=== PATIENT | female | born 1950 | race Caucasian/White ===

== ENCOUNTER 2017-10-31 06:42 | Inpatient (IN) ==
[2017-10-27 16:38] LABS: Appearance,Urine CLEAR; Bilirubin,Urine NEG (NEG); Color,Urine YELLOW; Glucose,Urine (UA) NEGATIVE (NEG); Leukocyte Esterase,Urine NEG /uL (NEG); Protein,Urine NEG (NEG); Specific Gravity,Urine 1.018 (1.000-1.035); Urine Blood NEG mg/dL (<0.03); Urobilinogen,Urine NEG (NEG)
[2017-10-27 18:19] LABS: Blood Urea Nitrogen 29 mg/dl (8-23)
[2017-10-27 18:22] LABS: Basophils # (Auto) 0.1 K/mcL (0.0-0.3); Basophils % (Auto) 0.6 % (0.0-2.0); Eosinophils # (Auto) 0.3 K/mcL (0.0-0.7); Eosinophils % (Auto) 1.7 % (0.0-7.0); Granulocytes % (Auto) 73.9 % (38.0-78.0); Lymphocytes # (Auto) 3.2 K/mcL (1.5-4.8); Lymphocytes % (Auto) 17.8 % (15.5-49.0); Mean Cell Volume 76.1 fL (80.0-100.0); Mean Corpuscular HGB Conc 31.8 g/dL (31.0-36.0); Mean Corpuscular Hemoglobin 24.2 pg (26.0-34.0); Monocytes # (Auto) 1.1 K/mcL (0.1-0.9); Platelet Count 266 K/mcL (140-440); RBC 4.69 M/mcL (4.00-5.20); Red Cell Distribution Width 21.9 % (11.5-14.5)
[2017-10-31] MEDS ORDERED: oxyCODONE 10 MG TAB.ER.12H PO SCH (07:00)
[2017-10-31] MEDS ORDERED: CLINDAMYCIN 600 MG in DEXTROSE 5% IN WATER 50 ML IV SCH (07:00)
[2017-10-31] MEDS ORDERED: PREGABALIN 75 MG CAPSULE PO SCH (07:00)
[2017-10-31] MEDS ORDERED: CELECOXIB 200 MG CAPSULE PO SCH (07:00)
[2017-10-31] MEDS ORDERED: ACETAMINOPHEN 500 MG TABLET PO SCH (07:00)
[2017-10-31] MEDS ORDERED: IPRATROPIUM/ALBUTEROL 3 ML AMPUL.NEB NEB ONE (08:31)
[2017-10-31] MEDS ORDERED: LEVALBUTEROL 1.25 MG/3 ML AMPUL.NEB NEB ONE (08:45)
[2017-10-31] MEDS ORDERED: MIDAZOLAM 5 MG/5 ML VIAL IV ONE (09:10)
[2017-10-31] MEDS ORDERED: PROPOFOL 200 MG/20 ML VIAL IV ONE (09:10)
[2017-10-31] MEDS ORDERED: ONDANSETRON 4 MG/2 ML VIAL IV ONE (09:10)
[2017-10-31] MEDS ORDERED: DEXAMETHASONE 10 MG/ML VIAL IV ONE (09:10)
[2017-10-31] MEDS ORDERED: SUCCINYLCHOLINE 20 MG/ML ML IV ONE (09:10)
[2017-10-31] MEDS ORDERED: TRANEXAMIC ACID 1,000 MG/10 ML VIAL IV ONE ×2 (09:10→10:24)
[2017-10-31] MEDS ORDERED: KETAMINE 100 MG/ML ML IV ONE (09:10)
[2017-10-31] MEDS ORDERED: fentaNYL 250 MCG/5 ML VIAL IV ONE (09:10)
[2017-10-31] MEDS ORDERED: LIDOCAINE HCL/PF 100 MG/5 ML SYRINGE IV ONE (09:10)
[2017-10-31] MEDS ORDERED: GENTAMICIN SULFATE 800 MG/20 ML VIAL IR ONE (09:52)
[2017-10-31] MEDS ORDERED: HYDROmorphone 2 MG/ML VIAL IV PRN ×2 (09:57→10:24)
[2017-10-31] MEDS ORDERED: diphenhydrAMINE 50 MG/ML VIAL IV PRN (09:57)
[2017-10-31] MEDS ORDERED: KETOROLAC 15 MG/ML VIAL IV PRN ×2 (09:57→10:24)
[2017-10-31] MEDS ORDERED: ePHEDrine 50 MG/ML AMPUL IV PRN (09:57)
[2017-10-31] MEDS ORDERED: MEPERIDINE 25 MG/ML SYRINGE IV PRN (09:57)
[2017-10-31] MEDS ORDERED: PROMETHAZINE 25 MG/ML VIAL IV PRN (09:57)
[2017-10-31] MEDS ORDERED: NALOXONE HCL 0.4 MG/ML VIAL IV PRN (09:57)
[2017-10-31] MEDS ORDERED: IPRATROPIUM/ALBUTEROL 3 ML AMPUL.NEB NEB PRN (09:57)
[2017-10-31] MEDS ORDERED: FLUMAZENIL 0.1 MG/ML ML IV PRN (09:57)
[2017-10-31] MEDS ORDERED: METHOCARBAMOL 1,000 MG/10 ML VIAL IV PRN (09:57)
[2017-10-31] MEDS ORDERED: ONDANSETRON 4 MG/2 ML VIAL IV PRN ×2 (09:57→10:24)
[2017-10-31] MEDS ORDERED: ATROPINE SULFATE 0.4 MG/ML VIAL IV PRN (09:57)
[2017-10-31] MEDS ORDERED: METOPROLOL TARTRATE 5 MG/5 ML VIAL IV PRN (09:57)
[2017-10-31] MEDS ORDERED: LACTATED RINGERS 1,000 ML IV SCH (10:00)
[2017-10-31] MEDS ORDERED: BUPIVACAINE W/EPI 0.5% 50 ML VIAL IJ ONE (10:17)
[2017-10-31] MEDS ORDERED: MAGNESIUM HYDROXIDE 30 ML ORAL.SUSP PO PRN (10:24)
[2017-10-31] MEDS ORDERED: BISACODYL 10 MG SUPP.RECT PR PRN (10:24)
[2017-10-31] MEDS ORDERED: TEMAZEPAM 15 MG CAPSULE PO PRN (10:24)
[2017-10-31] MEDS ORDERED: POLYETHYLENE GLYCOL 3350 17 GM PACKET PO PRN (10:24)
[2017-10-31] MEDS ORDERED: BENZOCAINE/MENTHOL 1 LOZENGE PO PRN (10:24)
[2017-10-31] MEDS ORDERED: FLEETS ADULT ENEMA PR PRN (10:24)
[2017-10-31] MEDS ORDERED: ACETAMINOPHEN 325 MG TABLET PO PRN (10:24)
--- NOTE | 2017-10-31 10:24 | Brief Operative Note ---
Date of procedure: 10/31/17 Pre-op diagnosis: right shoulder rotator cuff arthropathy Post-op diagnosis: same Procedure: right shoulder reverse tsa and bicep tenodesis Grafts/Implants: Yes Anesthesia: GETA Complications Description: 10/31/17 10:23 none Surgeon: Jorge A Chavez Pulp Machine Operator: Jovanny Thompson Estimated blood loss (cc): 100 Specimens Removed/Pathology: none sent Condition: stable Disposition: PACU
[2017-10-31] MEDS ORDERED: LORazepam 0.5 MG TABLET PO PRN (10:26)
[2017-10-31] MEDS ORDERED: IPRATROPIUM BROMIDE 1 PUFF INHALER INH SCH (10:30)
[2017-10-31] MEDS: fentaNYL 100 MCG/2 ML VIAL IV PRN ×3 (11:13→11:24)
--- NOTE | 2017-10-31 11:13 | XRay Report ---
CLINICAL INFORMATION: Postsurgical follow-up TECHNIQUE: AP and Y view COMPARISON: None. FINDINGS: Status post reverse shoulder arthroplasty. Alignment is anatomic. Scapula and distal clavicle are negative. IMPRESSION: Status post reverse right shoulder arthroplasty Interpreted and Authenticated by: Miller Peacock 10/31/17
[2017-10-31] MEDS: 0.45 % SODIUM CHLORIDE 1,000 ML IV SCH ×3 (11:45→22:28)
--- NOTE | 2017-10-31 11:45 | Operative Note ---
DATE OF OPERATION: 10/31/2017 PREOPERATIVE DIAGNOSIS: Right shoulder rotator cuff arthropathy and degenerative arthritis with biceps tendinopathy. POSTOPERATIVE DIAGNOSIS: Right shoulder rotator cuff arthropathy and degenerative arthritis with biceps tendinopathy. PROCEDURE: Right reverse total shoulder biceps tenodesis. SURGEON: Jorge A Chavez MD ELECTROLYSIS OPERATOR: Jovanny Thompson PA-C ANESTHESIA: General LMA anesthesia. COMPLICATIONS: None. ESTIMATED BLOOD LOSS: About 50 mL DESCRIPTION OF PROCEDURE: The patient was brought to the operating room and put to sleep with general LMA anesthesia. Once asleep, the patient had the right shoulder sterilely prepped and draped in the usual sterile fashion. Once the timeout had been performed, we confirmed this as the operative site both by x-rays, consent form and initials on the skin. We then proceeded with the surgery. She had been given preop antibiotics, clindamycin and tranexamic acid. We made a deltopectoral approach, exposed the cephalic vein and retracted this laterally. Once this was done, we exposed the shoulder and retracted the conjoint tendon medially with a blue handled retractor. We released the remnants of the subscap, identified the bicep tendon which was released and reattached to the pec major using #2 Ethibond stitches x2 interrupted [id number] stitches. We irrigated thoroughly. We then dislocated the humeral head and made our neck cut at the anatomical neck region. Once this was done, we subluxed the head posteriorly with a protective plate. This exposed the joint. We removed the remnants of the labrum, released a 360 degree capsular release, placed the pin centrally with 10 degrees of inclination and then placed the reamer, reamed to size and placed a metaglene with a central screw measuring 28. The other screws were 28, 28 and 20. We irrigated thoroughly and all had good purchase and then we placed a 36 mm glenosphere with 2 mm of eccentricity and 2 mm of offset. Once positioned, we irrigated thoroughly and then we prepared the humerus. We trialed the size 10 stem and a standard poly. This seemed to be the most appropriate in tension, good range of motion and 1 mm of play or shuck test. Once done, we cemented the distal portion of the stem because of the poor bone quality with a cementless stem and then we placed a neutral poly. This reduced very nicely. We irrigated thoroughly and then repaired the soft tissues around the shoulder. The cephalic vein was injured. This was bovied to stop any bleeding and the fascial layer closed with 2-0 Vicryl. Skin was closed with 2-0 Vicryl and amina. The patient tolerated this well without complication. DonJoy sling was fitted and given to the patient. RBH:eldon Job ID: [id number] Doc ID: [id number] Jorge A Chavez MD
[2017-10-31] MEDS: HYDROcodone/APAP 10/325MG TABLET PO PRN ×2 (14:28→19:15)
[2017-10-31] MEDS ORDERED: fentaNYL 75 MCG PATCH TOPICAL SCH (17:00)
[2017-10-31] MEDS: CLINDAMYCIN 600 MG in DEXTROSE 5% IN WATER 50 ML IV SCH (18:12)
[2017-10-31] MEDS: 0.9 % SODIUM CHLORIDE 10 ML SYRINGE IV SCH ×2 (18:12→20:41)
[2017-10-31] MEDS: FAMOTIDINE 20 MG TABLET PO SCH (20:41)
[2017-10-31] MEDS: DOCUSATE SODIUM 100 MG CAPSULE PO SCH (20:41)
[2017-10-31] MEDS ORDERED: VERAPAMIL 120 MG TAB.XL.24H PO SCH (21:00)
[2017-10-31] MEDS ORDERED: SENNOSIDES 1 TABLET PO SCH (21:00)
[2017-10-31] MEDS ORDERED: QUEtiapine 25 MG TABLET PO SCH (21:00)
[2017-11-01] MEDS: HYDROcodone/APAP 10/325MG TABLET PO PRN ×4 (00:21→14:43)
[2017-11-01] MEDS: CLINDAMYCIN 600 MG in DEXTROSE 5% IN WATER 50 ML IV SCH (00:22)
[2017-11-01] MEDS: 0.9 % SODIUM CHLORIDE 10 ML SYRINGE IV SCH ×2 (06:03→14:47)
[2017-11-01] MEDS: 0.45 % SODIUM CHLORIDE 1,000 ML IV SCH (07:04)
--- NOTE | 2017-11-01 07:44 | Orthopedic Progress Note ---
Subjective Patient information: Note initiated : 11/01/17 at 7:43 am Service Date, if different from initiated Date: [] Patient: Sheryl Hong 67 y/o F admitted on 10/31/17 for Right Reverse Total Shoulder Arthroplasty. Chief Complaint: [Pt is stable this morning on post operative day 1 without any significant concerns or complaints. Patients vital signs have remained stable. Patients dressing is dry and is grossly instact from a neurovascular and motor standpoint. Patients 10 point ROS is otherwise negative. ] Objective Vital signs: Vital Signs Temp Pulse Resp BP Pulse Ox 11/01/17 07:01 97.1 F 94 H 16 143/76 88 L 11/01/17 04:00 98.6 F 74 16 90/62 93 11/01/17 00:00 99.1 F H 85 16 109/74 91 10/31/17 20:00 98.6 F 85 16 130/76 94 10/31/17 16:00 97.6 F 16 88/64 97 10/31/17 13:42 169/95 97 10/31/17 13:12 156/84 97 10/31/17 12:42 166/90 97 10/31/17 12:35 96 10/31/17 12:27 159/85 95 10/31/17 12:12 168/96 96 10/31/17 11:58 167/87 96 10/31/17 11:35 97.7 F 86 14 120/98 98 10/31/17 11:25 86 18 119/93 94 10/31/17 11:20 87 16 109/82 96 10/31/17 11:05 89 20 132/105 99 10/31/17 11:00 85 19 121/84 96 10/31/17 10:55 85 18 134/93 96 10/31/17 10:50 84 17 116/81 96 10/31/17 10:45 83 16 108/74 95 10/31/17 10:40 97.5 F 82 18 99/71 96 Intake and Output 10/31/17 11/01/17 11/01/17 21:59 05:59 13:59 Intake Total 1654 / 1654 100 / 100 Output Total 700 / 700 700 / 700 400 / 400 Balance 954 / 954 -600 / -600 -400 / -400 Intake: IV 1054 / 1054 Sodium Chloride 0.45% 1,000 ml 1000 / 1000 @ 100 mls/hr IV .Q10H [facility] Rx#: [id number] Cleocin 600 mg In Dextrose 5% 54 / 54 in Water 50 ml @ 100 mls/hr IV Q8H [facility] Rx#:[id number] Oral 600 / 600 100 / 100 Output: Void Amount 700 / 700 700 / 700 400 / 400 Other: Meal Dinner Percent of Meal Consumed 100% Weight 157 lb Intake & Output: Intake & Output 10/31/17 11/01/17 11/01/17 21:59 05:59 13:59 Intake Total 1654 / 1654 100 / 100 Output Total 700 / 700 700 / 700 400 / 400 Balance 954 / 954 -600 / -600 -400 / -400 Weight 157 lb Intake: IV 1054 / 1054 Sodium Chloride 0.45% 1,000 ml 1000 / 1000 @ 100 mls/hr IV .Q10H [facility] Rx#: [id number] Cleocin 600 mg In Dextrose 5% 54 / 54 in Water 50 ml @ 100 mls/hr IV Q8H [facility] Rx#:[id number] Oral 600 / 600 100 / 100 Output: Void Amount 700 / 700 700 / 700 400 / 400 Other: Meal Dinner Percent of Meal Consumed 100% Incision: Yes healing Incision clean and dry: Yes Dressing: Yes clean, Yes dry Weight bearing status: full Neurological exam IM: Yes motor sensory intact, Yes neurovascular intact Extremities exam IM: Yes neurovascular intact - Labs CBC & BMP: 10/27/17 14:46 10/27/17 14:46 Labs: Orthopedic Labs 10/27/17 14:46 PT 11.7 L INR 0.9 APTT 25 10/27/17 14:46 Hgb 11.3 L Hct 35.7 L Assessment and Plan (1) Hx of total shoulder replacement The patient has been educated regarding dressing care, Physical Therapy recommendations, home exercises, restrictions, and follow up appointments. The patient has had all necessary DME prescribed. The patient has remained relatively stable during their hospital course. Leave Dermabond patch intact until followup Status: Acute
--- NOTE | 2017-11-01 07:46 | Discharge Summary ---
Ortho Discharge - TSA - Patient Instructions Diet: Regular Diet Activity: activity as tolerated, weight bearing as tolerated Total Shoulder Protocol: Leave immobilizer in place except for bathing and ROM. Abduction pillow. Continue to wear sling until seen by physician. Codman Pendulum : These exercises use momentum produced by your body to move your shoulder joint. Bend your knees and shift your weight to your front leg, then back, allowing your arm to swing in the same directions. Using the same technique, alternately shift your weight between your right and left legs, allowing your arm to swing from side to side. These exercises are also performed in counterclockwise and clockwise circular motions. Typically these exercises are performed several times per day, for a set number repetitions or minutes, such as 20 times in a row or 5 minutes at a time. Dressing Care: May shower in 2 days - Problem Maintenance (1) Hx of total shoulder replacement Status: Acute - Follow Up Plan Disposition: Home, Self-Care Prognosis: Good Rehab Potential: Good I certify that the patient requires SNF services: No Overall status at discharge: patient is progressing back to baseline - Orders For Discharge Prescriptions: Docusate Sodium [Colace] 100 mg PO BID #60 cap HYDROcodone/APAP 10/325MG [[place] 10-325Mg] 1 - 2 tab PO Q4HP PRN #75 tab PRN Reason: Pain Level 3-6
[2017-11-01] MEDS ORDERED: POTASSIUM CHLORIDE 10 MEQ TABLET PO SCH (08:00)
[2017-11-01] MEDS: FAMOTIDINE 20 MG TABLET PO SCH (08:21)
[2017-11-01] MEDS: DOCUSATE SODIUM 100 MG CAPSULE PO SCH (08:21)
[2017-11-01] MEDS ORDERED: FUROSEMIDE 20 MG TABLET PO SCH (09:00)
[2017-11-01] MEDS ORDERED: VILANTEROL INH SCH (09:00)
[2017-11-01] MEDS ORDERED: PARoxetine 20 MG TABLET PO SCH (09:00)
[2017-11-01] MEDS ORDERED: LISINOPRIL 10 MG TABLET PO SCH (09:00)
[2017-11-01] MEDS ORDERED: FLUTICASONE INH SCH (09:00)
[2017-11-01] MEDS ORDERED: METOPROLOL SUCCINATE 25 MG TAB.XL.24H PO SCH (09:00)
== END 2017-11-01 15:27 | disposition home or self-care (01) | DRG 483 ==
LOC: MEDSUR 06:42
PROVIDERS: ADMIT Orthopaedic Surgery; ATTEND Orthopaedic Surgery